=== PATIENT | female | born 1930 | race Hispanic/Latino ===

== ENCOUNTER → 2021-03-14 | Outpatient (CLI) | payer OTHER ==
[~2021-03-14] MED LIST: ALEN10TA26 PO; BENA1TAB73 PO; CELE200 PO; ERGO400C PO; LEVO100T12 PO; METF-444 PO; PRAV20TA4 PO
== END | disposition home or self-care (01) ==
LOC: RAH 09:45
PROVIDERS: ATTEND Family Medicine
DX: K21.9 Gastro-esophageal reflux disease without esophagitis (principal); R05 Cough; F02.80 Dementia in other diseases classified elsewhere, unspecified severity, without behavioral disturbance, psychotic disturbance, mood disturbance, and anxiety; R13.19 Other dysphagia
CPT/HCPCS: 74230; 92611